=== PATIENT | male | born 1945 | race Caucasian/White ===

== ENCOUNTER 2017-08-26 07:42 | Outpatient (CLI) | payer MEDICARE | END 2017-08-26 07:43 | disposition EMS.NT | LOC: EMS 07:42 | PROVIDERS: ATTEND Surgery | DX: R42 Dizziness and giddiness (principal) ==

== ENCOUNTER 2017-09-04 08:00 | Outpatient (CLI) | payer MEDICARE, BC ==
--- NOTE | 2017-09-05 15:20 | MRI Report ---
EXAM: MRI BRAIN WITHOUT CONTRAST EXAM DATE: 09/04/2017 05:23 PM. CLINICAL HISTORY: New symptoms of dementia, history of acute brain injury. COMPARISON: None. TECHNIQUE: Multiplanar, multisequence T1-weighted and fluid-sensitive MR sequences of the brain were performed. Sequences optimized for routine evaluation. Other: None. IV Contrast: None. FINDINGS: No abnormal magnetic susceptibility is present in the brain parenchyma. No cerebellar tonsillar ectopia is present. A 4 mm focus of restricted diffusion signal and corresponding low ADC map signal is seen involving th e anterior right thalamus with corresponding low ADC map and FLAIR hyperintense signal. Age-appropriate prominence of the ventricles and sulci is noted. Subcortical and deep white matter FL AIR hyperintensities are seen in the cerebral hemisphere white matter bilaterally. No abnormal T2 or FLAIR hyperintense signal is present in the brainstem or in either cerebellar hemis phere. An expected flow void is seen in the major intracranial vessels at the skull base. No mass is identified in either orbit. An expected flow void is seen in the superior sagittal sinus. Bilateral maxillary sinus and ethmoid air cell mucosal thickening is present. An expected flow void is seen in the superior sagittal sinus and in each transverse sinus. No abnormal T1 shortening is present within the brain parenchyma. IMPRESSION: 1. A small focus of restricted diffusion signal is seen involving the anterior right thalamus. The lo cation and MRI appearance favor an acute stroke between 6 hours and [id number] over a region of hem orrhagic diffuse axonal/shear injury. 2. Small vessel ischemic change is present in the cerebral hemisphere white matter. 3. No extra-axial fluid collection is present. 4. No intracranial mass is identified by noncontrast MRI. Report phoned to the ordering physician's office at 1:55 p.m. on 09/05/2017. [facility] Referring Provider Line: [phone] SITE ID: [id number]
== END 2017-09-04 08:01 | disposition home or self-care (01) ==
LOC: DI 08:00
PROVIDERS: ATTEND Family Medicine
DX: F03.90 Unspecified dementia, unspecified severity, without behavioral disturbance, psychotic disturbance, mood disturbance, and anxiety (principal); I67.82 Cerebral ischemia
CPT/HCPCS: 70551

== ENCOUNTER 2017-09-25 08:00 | Outpatient (CLI) | payer MEDICARE, BC | END 2017-09-25 08:01 | disposition home or self-care (01) | LOC: LAB.F 08:00 | PROVIDERS: ATTEND Family Medicine | DX: I63.9 Cerebral infarction, unspecified (principal); R06.00 Dyspnea, unspecified; I10 Essential (primary) hypertension | CPT/HCPCS: 36415; 83880 ==

== ENCOUNTER 2017-09-26 15:52 | Outpatient (CLI) | payer MEDICARE, BC | END 2017-09-26 15:53 | disposition home or self-care (01) | LOC: RT 15:52 | PROVIDERS: ATTEND Nurse Practitioner Family | DX: E87.5 Hyperkalemia (principal); I50.9 Heart failure, unspecified; N18.9 Chronic kidney disease, unspecified | CPT/HCPCS: 93005; 93041 ==

== ENCOUNTER 2017-11-22 08:57 | Outpatient (CLI) | payer MEDICARE, BC ==
[2017-11-22 10:46] LABS: HGB - HEMOGLOBIN 11.8 g/dL (14.0-18.0); MEAN CORPUSCULAR HEMOGLOBIN 35.5 pg (27.0-31.0); MEAN CORPUSCULAR VOLUME 104.3 fL (80.0-94.0); RED BLOOD COUNT 3.31 10^6/uL (4.70-6.10); RED CELL DISTRIBUTION WIDTH 13.4 % (12.0-15.0); WHITE BLOOD COUNT 4.8 x10^3/uL (4.8-10.8)
[2017-11-22 10:51] LABS: ALBUMIN 3.7 g/dL (3.2-5.5); BUN - BLOOD UREA NITROGEN 38 mg/dL (6-20); CALCIUM 9.2 mg/dL (8.5-10.3); CARBON DIOXIDE - CO2 24 mmol/L (21-32); CHLORIDE 101 mmol/L (101-111); CHOL/HDL RATIO 6.1 (<5.0); CHOLESTEROL 184 mg/dL; CREATININE 1.9 mg/dL (0.6-1.2); GFR - MDRD 35 (>89); GLUCOSE 125 mg/dL (70-100); HDL CHOLESTEROL 30 mg/dL; LDL CHOLESTEROL,CALCULATED 108 mg/dL; LDL/HDL RATIO 3.6 (<3.6); PHOSPHORUS 3.8 mg/dL (2.5-4.6); SODIUM 133 mmol/L (135-145); VLDL CHOLESTEROL 46 mg/dL
[2017-11-22 11:00] LABS: HB2 TOTAL 12.7 g/dL; HEMOGLOBIN A1C 0.52 g/dL; HEMOGLOBIN A1C % 5.9 % (4.6-6.2)
== END 2017-11-22 08:58 | disposition home or self-care (01) ==
LOC: LAB.F 08:57
PROVIDERS: ATTEND Internal Medicine Nephrology
DX: E11.22 Type 2 diabetes mellitus with diabetic chronic kidney disease (principal); N18.3 Chronic kidney disease, stage 3 (moderate)
CPT/HCPCS: 36415; 80061; 80069; 83036; 83721; 83970; 84156; 85027

== ENCOUNTER 2018-08-08 12:09 | Emergency (ER) | payer MEDICARE, BC ==
[2018-08-08 12:16] VITALS: BP 153/72
--- NOTE | 2018-08-08 12:24 | ED Physician Documentation ---
PD HPI HEAD INJURY - Stated complaint Stated Complaint: HEAD LAC - Chief complaint Chief Complaint: Laceration - History obtained from History obtained from: Patient - History of Present Illness Mechanism of head injury: Fell (he lost balance, with feet tangled in walker wheels, and fell slowly backward, described a slumping per daughter. struck back of head on sharp edge of fireplace or fireplace tools, with sharp lac in occiput. No LOC. No concussive symptoms.) Where head injury occurred: Home Timing - onset: Today Location of injury: Back Associated symptoms: No: LOC, AMS, Nausea / vomiting Contributing factors: No: Anticoagulated, Intoxicated Similar symptoms before: Diagnosis (has balance problems with falls at times.) Review of Systems Constitutional: denies: Fever Nose: denies: Rhinorrhea / runny nose, Congestion Throat: denies: Sore throat Respiratory: denies: Cough Musculoskeletal: denies: Neck pain, Back pain Neurologic: denies: Focal weakness, Numbness, Difficulty speaking, Altered mental status PD PAST MEDICAL HISTORY - Past Medical History Cardiovascular: None Respiratory: None - Living Situation Living Situation: reports: With family Living Arrangement: reports: At home - Social History Does the pt smoke?: No Does the pt drink ETOH?: No PD ED PE NORMAL - Vitals Vital signs reviewed: Yes - General General: Alert and oriented X 3, No acute distress, Well developed/nourished - HEENT HEENT: PERRL, EOMI, Pharynx benign, Other (occiput with 4 cm vertical laceration with sharp edges c/w likely fireplace tool edge or such. ). No: Dentition benign (had frontal chipped tooth from fall last week or so. ) - Neck Neck: Supple, no meningeal sign, No bony TTP - Neuro Neuro: Alert and oriented X 3, subcontract manager 2-12 intact, No motor deficit, No sensory deficit, Normal speech Results - Vitals Vitals: Oxygen O2 Source Room air Procedures - Laceration (location) occipital scalp Length in cm: 4 Wound type: Linear, Into subcut fat, Clean Anesthesia: Lidocaine 1% with epi Wound Preparation: Irrigated copiously NS Skin layer closure: [place] Other: Patient tolerated well, No complications, Neurovascular intact Complexity: Simple PD MEDICAL DECISION MAKING - ED course Complexity details: considered differential (description of a low force fall and struck head on sharp edge, without concussive symptoms. Pt and family do not feel concern for ICH and so imaging deferred. ), d/w patient, d/w family Departure - Departure Disposition: 01 Home, Self Care Clinical Impression: Fall from slip, trip, or stumble Qualifiers: Encounter type: initial encounter Qualified Code(s): W01.0XXA - Fall on same level from slipping, tripping and stumbling without subsequent striking against object, initial encounter Scalp laceration Qualifiers: Encounter type: initial encounter Qualified Code(s): S01.01XA - Laceration without foreign body of scalp, initial encounter Condition: Stable Record reviewed to determine appropriate education?: Yes Instructions: ED Laceration Scalp Stitch Or Stap Follow-Up: RHYS FALK MD [Primary Care Provider] - Comments: It is okay to wash and shower. Clean off the wound twice a day with soap and water, or peroxide and water. Apply some antibiotic ointment to it to keep it moist. Also to watch for signs of infection such as purulence, redness or increasing pain. Return to your primary care or the ER at the specified time for suture removal. Staple removal 7-10 days. Discharge Date/Time: 08/08/18 13:03
[2018-08-08] MEDS ORDERED: ACETAMINOPHEN 325 MG TABLET PO STA (13:11)
== END 2018-08-08 13:03 | disposition home or self-care (01) ==
LOC: ED 12:09
DX: S01.01XA Laceration without foreign body of scalp, initial encounter (principal); W01.118A Fall on same level from slipping, tripping and stumbling with subsequent striking against other sharp object, initial encounter; Z91.81 History of falling; Y93.01 Activity, walking, marching and hiking; Y92.009 Unspecified place in unspecified non-institutional (private) residence as the place of occurrence of the external cause
CPT/HCPCS: 12002; 99282; 99283

== ENCOUNTER 2018-10-11 11:06 | Outpatient (CLI) | payer MEDICARE, BC | END 2018-10-11 11:07 | disposition home or self-care (01) | LOC: DI 11:06 | PROVIDERS: ATTEND Internal Medicine | DX: R55 Syncope and collapse (principal); I08.0 Rheumatic disorders of both mitral and aortic valves | CPT/HCPCS: 93306 ==

== ENCOUNTER 2018-10-15 10:39 | Outpatient (CLI) | payer MEDICARE, BC ==
[2018-10-15 17:49] LABS: BASOPHILS % (AUTO) 0.8 %; EOSINOPHILS # (AUTO) 0.2 10^3/uL (0.0-0.7); EOSINOPHILS % (AUTO) 3.2 %; HGB - HEMOGLOBIN 13.4 g/dL (14.0-18.0); LYMPHOCYTES # (AUTO) 1.2 10^3/uL (1.5-3.5); LYMPHOCYTES % (AUTO) 20.3 %; MEAN CORPUSCULAR HEMOGLOBIN 35.2 pg (27.0-31.0); MEAN CORPUSCULAR HGB CONC 33.9 g/dL (32.0-36.0); MEAN CORPUSCULAR VOLUME 103.8 fL (80.0-94.0); MEAN PLATELET VOLUME 8.9 fL (7.4-11.4); MONOCYTES # (AUTO) 0.4 10^3/uL (0.0-1.0); MONOCYTES % (AUTO) 7.4 %; NEUTROPHILS # (AUTO) 3.9 10^3/uL (1.5-6.6); NEUTROPHILS % (AUTO) 68.3 %; PLT - PLATELET COUNT 174 10^3/uL (130-450); RED BLOOD COUNT 3.81 10^6/uL (4.70-6.10); RED CELL DISTRIBUTION WIDTH 14.3 % (12.0-15.0); WHITE BLOOD COUNT 5.7 x10^3/uL (4.8-10.8)
[2018-10-15 18:13] LABS: ALBUMIN 4.4 g/dL (3.2-5.5); ALBUMIN/GLOBULIN RATIO 1.2 (1.0-2.2); BILIRUBIN,TOTAL 1.2 mg/dL (0.2-1.0); CREATININE 2.2 mg/dL (0.6-1.2); TOTAL PROTEIN 8.1 g/dL (6.7-8.2)
[2018-10-15 18:16] LABS: THYROID STIMULATING HORMONE 1.38 uIU/mL (0.34-5.60)
[2018-10-15 18:18] LABS: FREE T4 (FREE THYROXINE) 1.36 ng/dL (0.58-1.64)
[2018-10-15 18:22] LABS: FERRITIN 807.6 ng/mL (23.9-336.2)
[2018-10-15 18:50] LABS: CALCIUM 9.8 mg/dL (8.5-10.3)
[2018-10-15 18:54] LABS: HEMOGLOBIN A1C 0.91 g/dL; HEMOGLOBIN A1C % 7.7 % (4.6-6.2)
== END 2018-10-15 10:40 | disposition home or self-care (01) ==
LOC: LAB.F 10:39
PROVIDERS: ATTEND Internal Medicine
DX: E03.9 Hypothyroidism, unspecified (principal); I50.9 Heart failure, unspecified; E11.42 Type 2 diabetes mellitus with diabetic polyneuropathy; D50.9 Iron deficiency anemia, unspecified; K55.1 Chronic vascular disorders of intestine
CPT/HCPCS: 36415; 80053; 82150; 82728; 83036; 83540; 83690; 83880; 84439; 84443; 84466; 85025

== ENCOUNTER 2018-11-07 07:56 | Outpatient (CLI) | payer MEDICARE, BC ==
--- NOTE | 2018-11-07 14:18 | Ultrasound Report ---
Reason: ACUTE PANCREATITIS WITHOUT NECROSIS, OTHER TRANSIE Procedure Date: 11/07/2018 Accession Number: [id number] / [id number] Procedure: US - Abdomen Complete CPT Code: FULL RESULT: EXAM: ABDOMEN ULTRASOUND EXAM DATE: 11/07/2018 08:15 AM. CLINICAL HISTORY: Acute pancreatitis without necrosis. COMPARISON: CT ABD AND PELVIS W/O CONTRAST 07/22/2012 2:16 AM. TECHNIQUE: Real-time scanning was performed with static images obtained. FINDINGS: Liver: Liver parenchyma is markedly hyperattenuating which limits evaluation for underlying mass, no mass is seen. Liver measures at least 17.8 cm. Main portal vein flow: Hepatopetal. Gallbladder: Cholelithiasis is noted without gallbladder wall thickening or pericholecystic fluid to suggest cholecystitis. Sonographic Cates's sign is negative. Biliary System: Common bile duct measures 5 mm. No intrahepatic or extrahepatic ductal dilatation. Pancreas: The pancreas is not well seen due to poor acoustic windows. Kidneys: Right: 11.0 cm longitudinally. Normal. No contour-deforming mass, stones, or hydronephrosis. Left: 8.3 cm longitudinally. The kidney appears atrophic in size and demonstrates a shadowing calcification most compatible with a nonobstructing calculus measuring up to 0.8 cm. Spleen: 11.1 cm. Normal in size and echotexture. Aorta and Inferior Vena Cava: Aorta is status post endovascular repair with the aneurysm sac measuring 7.0 x 7.6 cm as seen. Single color Doppler image suggests possible biiliac configuration versus flow near the inferior margins of the aneurysm sac. This is not characterized on the current study. Other: None. IMPRESSION: Status post endovascular repair of abdominal aortic aneurysm. Inadequately characterized with this study not tailored to that purpose. Recommend correlation to recent surveillance imaging as the most recent comparison imaging is prior to repair. Hepatic steatosis. Cholelithiasis. Nonobstructing left renal calculus, up to 0.8 cm, in setting of left renal atrophy. [facility]
--- NOTE | 2018-11-07 14:26 | Ultrasound Report ---
Reason: ACUTE PANCREATITIS WITHOUT NECROSIS, OTHER TRANSIE Procedure Date: 11/07/2018 Accession Number: [id number] / [id number] Procedure: US - Carotid Doppler Complete CPT Code: FULL RESULT: EXAM: BILATERAL CAROTID AND VERTEBRAL ARTERY DUPLEX DOPPLER ULTRASOUND: EXAM DATE: 11/07/2018 08:52 AM CLINICAL HISTORY: Acute pancreatitis without necrosis, transient ischemic attack, subclavian steal syndrome. COMPARISON: None. TECHNIQUE: Grayscale imaging, color Doppler, and duplex spectral Doppler were used to evaluate the carotid and vertebral arteries bilaterally. Static images were obtained. FINDINGS: Both carotid artery systems demonstrate intimal thickening where patent. There is a combination of echogenic shadowing and hypoechoic plaque at times limiting evaluation. Arterial waveforms as seen by spectral Doppler in the right common carotid artery system, right external carotid artery system and right carotid bulbs demonstrate preserved brisk systolic arterial upstrokes. The right internal carotid artery demonstrates complete occlusion by color and grayscale Doppler with no believable detectable flow by spectral Doppler. The right vertebral artery demonstrates arterial waveform by spectral Doppler with antegrade flow and no evidence of complete or partial reversal. Atherosclerotic disease is seen throughout the left carotid arterial system including, the common carotid artery distribution with preserved spectral waveforms in the left common carotid artery, left bulb region. The left external carotid artery initially demonstrates high resistance waveform followed by downstream tardus parvus flow. The proximal left ICA is not well seen due to plaque. In keeping with visual plaque, arterial waveforms in the left internal carotid artery system demonstrate progressive downstream deterioration with low resistance essentially tardus parvus waveform in the distal left ICA, suggestive of hemodynamically meaningful stenosis. There is complete reversal flow in the left vertebral artery. VELOCITIES (cm/sec): RIGHT CCA mid: PSV 72 cm/sec CCA dist: PSV 63 cm/sec ICA prox: Occluded ICA mid: Occluded ICA dist: Occluded ECA: PSV 182 cm/sec Vert: PSV 49 cm/sec Subc: PSV 36 cm/sec, EDV 4.5 cm/sec ICA/CCA: Not established. LEFT CCA mid: PSV 67 cm/sec CCA dist: PSV 64 cm/sec ICA prox: PSV 87 cm/sec, EDV 43 cm/sec ICA mid: PSV 115 cm/sec, EDV 17 cm/sec ICA dist: PSV 73 cm/sec, EDV 35 cm/sec ECA: PSV 148 cm/sec Vert: PSV 48 cm/sec Subc: PSV 43 cm/sec, EDV 12 cm/sec ICA/CCA: 1.7 ICA diameter stenosis: Right: Left: IMPRESSION: 1. Visually significant bilateral carotid artery plaquing. 2. Total occlusion of the right internal carotid artery. 3. Hemodynamically significant left internal carotid artery stenosis given tardus parvus waveforms which is not directly visualized. The stenosis based on hemodynamic effect is greater than 70% but can otherwise not be characterized by ultrasound. 4. Reversal of flow in the left vertebral artery, concerning for steal. Normal antegrade flow in the right vertebral artery. General Recommendations: Additional characterization of the left internal carotid artery stenosis with referral for consideration of treatment. Optimal characterization is by CTA versus diagnostic angiogram depending on the power saw operator. KERRY The call report notification system was initiated by Dr. Esteban Doe at 02:12 PM on 11/07/2018. ADDENDUM: 11/07/18 14:35 The above call report findings were discussed with Jenni Cates by Dr. Esteban Doe at 02:35 PM on 11/07/2018.
== END 2018-11-07 07:57 | disposition home or self-care (01) ==
LOC: DI 07:56
PROVIDERS: ATTEND Internal Medicine
DX: K85.90 Acute pancreatitis without necrosis or infection, unspecified (principal); G45.8 Other transient cerebral ischemic attacks and related syndromes; I65.23 Occlusion and stenosis of bilateral carotid arteries; N20.0 Calculus of kidney; K80.20 Calculus of gallbladder without cholecystitis without obstruction; K76.0 Fatty (change of) liver, not elsewhere classified
CPT/HCPCS: 76700; 93880

== ENCOUNTER 2019-01-18 23:33 | Emergency (ER) | payer MEDICARE, BC ==
[2019-01-19] LABS: BASOPHILS # (AUTO) 0.1 10^3/uL (0.0-0.1); BASOPHILS % (AUTO) 0.6 %; EOSINOPHILS # (AUTO) 0.3 10^3/uL (0.0-0.7); EOSINOPHILS % (AUTO) 3.3 %; HGB - HEMOGLOBIN 11.8 g/dL (14.0-18.0); LYMPHOCYTES # (AUTO) 2.2 10^3/uL (1.5-3.5); LYMPHOCYTES % (AUTO) 25.7 %; MEAN CORPUSCULAR HEMOGLOBIN 35.4 pg (27.0-31.0); MEAN CORPUSCULAR HGB CONC 34.5 g/dL (32.0-36.0); MEAN CORPUSCULAR VOLUME 102.7 fL (80.0-94.0); MONOCYTES # (AUTO) 0.7 10^3/uL (0.0-1.0); MONOCYTES % (AUTO) 8.3 %; NEUTROPHILS # (AUTO) 5.2 10^3/uL (1.5-6.6); NEUTROPHILS % (AUTO) 61.7 %; PLT - PLATELET COUNT 172 10^3/uL (130-450); RED BLOOD COUNT 3.33 10^6/uL (4.70-6.10); RED CELL DISTRIBUTION WIDTH 13.1 % (12.0-15.0); WHITE BLOOD COUNT 8.5 x10^3/uL (4.8-10.8)
[2019-01-19 00:11] LABS: ALBUMIN 3.8 g/dL (3.2-5.5); ALBUMIN/GLOBULIN RATIO 1.2 (1.0-2.2); BILIRUBIN,TOTAL 0.3 mg/dL (0.2-1.0); CALCIUM 9.5 mg/dL (8.5-10.3); CREATININE 2.3 mg/dL (0.6-1.2); TOTAL PROTEIN 7.1 g/dL (6.7-8.2)
[2019-01-19] MEDS ORDERED: MORPHINE 2 MG/ML CARPUJECT IVP STA (00:11)
[2019-01-19] MEDS ORDERED: SODIUM CHLORIDE 0.9% 250 ML IV ONE ×2 (00:12→01:23)
[2019-01-19] MEDS ORDERED: ONDANSETRON 4 MG/2 ML VIAL IVP STA (00:12)
[2019-01-19] MEDS ORDERED: PROMETHAZINE INJ 12.5 MG in SODIUM CHLORIDE 0.9% 50 ML IV STA (00:27)
--- NOTE | 2019-01-19 00:55 | CT Report ---
Reason: fall with head injury Procedure Date: 01/19/2019 Accession Number: [id number] / [id number] Procedure: CT - HEAD WO CPT Code: FULL RESULT: EXAM: CT HEAD EXAM DATE: 01/19/2019 12:40 AM. CLINICAL HISTORY: Fall with head injury, recent history of acute stroke with vision loss. COMPARISON: BRAIN W/O 09/04/2017 4:45 PM. TECHNIQUE: Multiaxial CT images were obtained from the foramen magnum to the vertex. Reformats: Sagittal and coronal. IV contrast: None. In accordance with CT protocol optimization, one or more of the following dose reduction techniques were utilized for this exam: automated exposure control, adjustment of mA and/or KV based on patient size, or use of iterative reconstructive technique. FINDINGS: Parenchyma: There is hemorrhage primarily in gyriform distribution in right occipital lobe. There is a focus of hemorrhage in the left occipital lobe as well. There is mild low density involving white matter of the cerebral hemispheres. Extraaxial Spaces: No subdural or epidural collections identified. Ventricles: Mild enlargement of lateral ventricles. No midline shift. Sinuses and Orbits: Imaged paranasal sinuses, orbits, and mastoids show no significant abnormality. Bones: No evidence of fracture or calvarial defect. Other: There is a frontal scalp hematoma.. IMPRESSION: 1. Right occipital parenchyma hemorrhage in gyriform pattern without significant mass-effect. Distribution suggestive of hemorrhagic conversion of subacute infarct. 2. Small likely remote left posterior temporal infarct. [facility] The call report notification system was initiated by Dr. Neri Bravo at 12:46 AM on 01/19/2019. The above call report findings were discussed with Dr. Christina by Dr. Neri Bravo at 12:51 AM on 01/19/2019.
[2019-01-19] MEDS ORDERED: BACITRACIN ZINC OINT 14 GM TOP STA (00:57)
--- NOTE | 2019-01-19 01:00 | ED Physician Documentation ---
PD HPI HEAD INJURY - Stated complaint Stated Complaint: HEAD INJ/FALL - Chief complaint Chief Complaint: Laceration - History obtained from History obtained from: Patient, Family () - History of Present Illness Mechanism of head injury: Fell Where head injury occurred: Home Location of injury: Front Contributing factors: Other (Recent stroke 2.5 weeks ago.) - Additional information Additional information: The patient is a 73-year-old male with a history of congestive heart failure, renal impairment, and recent CVA 2.5 weeks ago, on hospice, who lost his balance and fell while walking to the bathroom just prior to arrival. He presents with a large scalp laceration across the frontal scalp. It is uncertain what object he hit when he fell. He denies loss of consciousness. He reports mild headache and nausea. He denies vomiting. He denies neck pain, chest pain, or shortness of breath. Review of Systems Eyes: reports: Other (Left-sided visual deficit and impaired peripheral vision since his stroke 2-1/2 weeks ago.) Cardiac: denies: Chest pain / pressure Respiratory: denies: Dyspnea, Cough GI: reports: Nausea. denies: Abdominal Pain, Vomiting : denies: Dysuria Skin: reports: Laceration (s) (Scalp) Musculoskeletal: denies: Neck pain, Extremity pain Neurologic: reports: Generalized weakness, Numbness (Decreased sensation left upper extremity.), Head injury. denies: LOC PD PAST MEDICAL HISTORY - Past Medical History Past Medical History: Yes Cardiovascular: Congestive heart failure Respiratory: None Neuro: Dementia, CVA Endocrine/Autoimmune: Type 2 diabetes : Renal insuffiency Musculoskeletal: Osteoarthritis Derm: None - Past Surgical History Past Surgical History: Yes Cardiovascular: Coronary stent - Present Medications Home Medications: Ambulatory Orders Medication Instructions Recorded Confirmed Hydrocodone/Acetaminophen 1 - 2 each PO Q6H PRN #20 tablet 01/19/19 [Hydrocodon-Acetaminophen 5-325] Promethazine [Phenergan] 25 mg PO Q6H PRN #10 tab 01/19/19 - Allergies Allergies/Adverse Reactions: Allergies Allergy/AdvReac Type Severity Reaction Status Date / Time No Known Drug Allergies Allergy Verified 01/18/19 23:56 - Living Situation Living Situation: reports: With spouse/s.o. Living Arrangement: reports: At home - Social History Does the pt smoke?: No Smoking Status: Never smoker Does the pt drink ETOH?: No Does the pt have substance abuse?: No - Immunizations Immunizations are current?: Yes PD ED PE NORMAL - Vitals Vital signs reviewed: Yes (Hypertensive) - General General: Well developed/nourished, Other (Alert, mildly confused.) - HEENT HEENT: Other (10 cm scalp laceration across the frontal scalp. Left visual field deficit.) - Neck Neck: Supple, no meningeal sign, No bony TTP, No JVD - Cardiac Cardiac: RRR - Respiratory Respiratory: No respiratory distress, Clear bilaterally - Abdomen Abdomen: Soft, Non tender - Back Back: No spinal TTP - Derm Derm: Other (Pale appearance) - Extremities Extremities: No tenderness to palpate, No edema, No calf tenderness / cord, Other (Abrasions over the the patellar aspect of both knees.) - Neuro Neuro: Normal speech, Other (,Alert but pleasantly confused. Left visual field deficit. Mildly decreased sensation left upper extremity. Generalized weakness, without focal motor deficit detected.) Eye Opening: Spontaneous Motor: Obeys Commands Verbal: Confused GCS Score: 14 Results - Vitals Vitals: Vital Signs - 24 hr 01/18/19 01/18/19 01/18/19 23:34 23:40 23:56 Temperature 36.7 C 36.7 C Heart Rate 103 H 109 H 106 H Respiratory 14 19 19 Rate Blood Pressure 207/118 H 207/118 H 177/64 H O2 Saturation 93 01/19/19 01/19/19 01/19/19 00:51 01:29 01:43 Temperature Heart Rate 101 H 91 87 Respiratory 15 14 12 Rate Blood Pressure 128/77 149/72 H 129/72 O2 Saturation 97 99 01/19/19 01/19/19 02:05 02:25 Temperature Heart Rate 94 97 Respiratory 18 16 Rate Blood Pressure 90/62 90/68 O2 Saturation 97 Oxygen O2 Source Room air - EKG (time done) 00:14 Rate: Rate (enter#) (104) Rhythm: Sinus tachycardia [place]: Normal Intervals: Normal GA QRS: LVH Ischemia: ST depression, Q waves (in inferior leads II, III, and aVF, consistent with old inferior IA.) Computer interpretation: Agree with computer - Labs Labs: Laboratory Tests 01/18/19 01/18/19 23:53 23:53 WBC 8.5 RBC 3.33 L Hgb 11.8 L Hct 34.2 L MCV 102.7 H MCH 35.4 H MCHC 34.5 RDW 13.1 Plt Count 172 MPV 10.0 Neut # (Auto) 5.2 Lymph # (Auto) 2.2 [place] # (Auto) 0.7 Eos # (Auto) 0.3 Baso # (Auto) 0.1 Absolute Nucleated RBC 0.00 Nucleated RBC % 0.0 Sodium 133 L Potassium 3.7 Chloride 92 L Carbon Dioxide 28 Anion Gap 13.0 BUN 50 H Creatinine 2.3 H Estimated GFR (MDRD) 28 L Glucose 207 H Calcium 9.5 Total Bilirubin 0.3 AST 31 ALT 28 Alkaline Phosphatase 80 Total Protein 7.1 Albumin 3.8 Globulin 3.3 Albumin/Globulin Ratio 1.2 Lipase 60 H - Rads (name of study) Head CT Radiology: Prelim report reviewed, EMP read contemporaneously, See rad report (1) Right occipital parenchymal hemorrhage in gyriform pattern without significa nt mass-effect. Distribution suggestive of hemorrhagic conversion of subacute infarct. 2) Small likely remote left posterior temporal infarct.) Procedures - Laceration (location) scalp Length in cm: 10 Wound type: Curved, Flap, Into subcut fat, Contaminated (with hair) Neurovascular status: Sensory intact, Vascular intact Anesthesia: Lidocaine 1% with epi Wound Preparation: Hibiclens, Irrigated copiously NS, Wound explored, To the base, FB removed (hair) Deep layer closure: Vicryl, size #-0 - enter number (4), # sutures - enter number (1) Skin layer closure: [place] Other: Patient tolerated well, No complications, Neurovascular intact, Dressing applied, Tetanus UTD Complexity: Intermediate PD MEDICAL DECISION MAKING - ED course Complexity details: reviewed old records, reviewed results, re-evaluated patient, considered differential, d/w patient, d/w family, d/w internet sales consultant ED course: The patient's presentation is significant for fall with a large scalp laceration. His head CT reveals a subacute occipital parenchymal hemorrhage, consistent with his recent ischemic stroke with subsequent petechial hemorrhage. There is no mass-effect. Treatment in the emergency department included thorough cleaning of the wound after administration of 1% lidocaine with epinephrine. Hair was irrigated from the wound. A persistently bleeding scalp vessel was tied off with 4-0 Vicryl. The wound was closed with steve. Antibiotic ointment and compression dressing was applied. Normal saline 250 mL was administered IV. Zofran 4 mg was administered IV, followed by Phenergan 12.5 mg IV. Morphine 2 mg administered IV. The patient's nausea resolved and his pain improved. As a hospice patient, the patient and his prefer that he be discharged to home and continue hospice care. When he was transferred [facility] the [facility] to the wheelchair, he became pale and nearly lost consciousness. He was transferred back to the bed where an IV was reestablished and an additional 250 mL of normal saline was administered. His color improved as did his mental status. After another hour of observation the patient was again transferred from the [facility] to the wheelchair where he tolerated the transfer well, and was discharged with stable vital signs. He and his understand that his condition is tenuous, and they reiterate their comfort level with home discharge, stating they are prepared for what ever should happen next. Departure - Departure Disposition: 01 Home, Self Care Clinical Impression: Subacute intracranial hemorrhage, Hospice care patient Scalp laceration Qualifiers: Encounter type: initial encounter Qualified Code(s): S01.01XA - Laceration without foreign body of scalp, initial encounter Condition: Stable Instructions: ED Laceration Scalp Stitch Or Stap Follow-Up: RHYS FALK MD [Primary Care Provider] - Prescriptions: Hydrocodone/Acetaminophen [Hydrocodon-Acetaminophen 5-325] 1 - 2 each PO Q6H PRN #20 tablet PRN Reason: pain Promethazine [Phenergan] 25 mg PO Q6H PRN #10 tab PRN Reason: Nausea / Vomiting Comments: Clean the wound with warm soapy water daily, and apply antibiotic ointment daily. You can use Phenergan as prescribed if needed for nausea. You can use Vicodin as prescribed if needed for pain. Follow-up for removal of steve in about 12 days. Contact your hospice provider or return to the emergency department if progressively worsening symptoms. Discharge Date/Time: 01/19/19 02:49
[2019-01-19 02:50] VITALS: BP 90/68
== END 2019-01-19 02:49 | disposition home or self-care (01) ==
LOC: ED 23:33
DX: S01.01XA Laceration without foreign body of scalp, initial encounter (principal); W18.39XA Other fall on same level, initial encounter; Y93.01 Activity, walking, marching and hiking; Y92.009 Unspecified place in unspecified non-institutional (private) residence as the place of occurrence of the external cause; R55 Syncope and collapse; I62.9 Nontraumatic intracranial hemorrhage, unspecified; H53.8 Other visual disturbances; E11.29 Type 2 diabetes mellitus with other diabetic kidney complication
CPT/HCPCS: 12034; 36415; 70450; 80053; 83690; 85025; 93005; 96365; 96375; 99284; J7040